=== PATIENT | male | born 1955 | race African-American/Black ===

== ENCOUNTER 2024-01-27 05:02 | Inpatient (IN) | payer MEDICAID, OTHER ==
[~2024-01-27] VITALS: Ht 180.3 cm; Wt 64.9 kg
[2024-01-27 05:51] LABS: BASOPHILS % 0.2 % (0.0-2.0); EOSINOPHILS % 1.1 % (0.0-5.0); HEMATOCRIT. 36.3 % (42.0-52.0); HEMOGLOBIN. 12.1 g/dL (14.0-18.0); LYMPHOCYTES % 8.8 % (20.0-50.0); MEAN CORPUSCULAR HEMOGLOBIN 28.5 pg (28.0-32.0); MEAN CORPUSCULAR HGB CONC 33.5 g/dL (31.0-37.0); MEAN CORPUSCULAR VOLUME 85.1 fL (80.0-94.0); MEAN PLATELET VOLUME 9.3 fl (7.4-10.4); NEUTROPHILS % 78.9 % (40.0-76.0); PLATELET 128 x1000/uL (130-400); RED BLOOD CELL COUNT 4.26 mill/uL (4.7-6.1); RED CELL DISTRIBUTION WIDTH 13.6 % (11.6-14.6); WHITE BLOOD COUNT 7.3 x1000/uL (4.5-11.0)
[2024-01-27 05:54] LABS: CARBON DIOXIDE 29 mEq/L (21-32); CHLORIDE 97 mEq/L (98-107); POTASSIUM 3.7 mEq/L (3.5-5.1); SODIUM 132 mEq/L (136-145)
[2024-01-27 05:55] LABS: CALCIUM 9.6 mg/dL (8.7-10.4)
[2024-01-27 05:59] LABS: CREATININE 0.9 mg/dL (0.6-1.3)
[2024-01-27 06:00] LABS: GLUCOSE 292 mg/dL (70-105); UREA NITROGEN BLOOD 12 mg/dL (9-23)
[2024-01-27 06:01] LABS: ALANINE AMINOTRANSFERASE 44 IU/L (10-49); ALBUMIN 4.3 g/dL (3.2-4.8); ASPARTATE AMINOTRANSFERASE 50 IU/L (<34)
[2024-01-27 06:02] LABS: BILIRUBIN DIRECT 0.1 mg/dL (<=3.0); BILIRUBIN TOTAL 0.5 mg/dL (0.1-1.0); PROTEIN TOTAL 7.5 g/dL (6.0-8.3)
[2024-01-27 06:06] LABS: TROPONIN I HIGH SENSITIVITY < 4 ng/L (3.0-53)
[2024-01-27] MEDS: ACETAMINOPHEN 325MG TABLET PO ONE (06:13)
[2024-01-27 07:54] LABS: TROPONIN I HIGH SENSITIVITY 4 ng/L (3.0-53)
[2024-01-27] MEDS: CLONIDINE 0.1MG TABLET PO PRN (13:25)
[2024-01-27 13:45] VITALS: BP 80/50; PULSE 95; RESP 20; TEMP 37.11408; O2SAT 99
[2024-01-27 14:33] VITALS: BP 80/50; PULSE 95; RESP 20; TEMP 37.1408
[2024-01-27] MEDS ORDERED: DEXTROSE 50% WATER 50ML SYRINGE IV PRN (15:30)
[2024-01-27] MEDS ORDERED: ONDANSETRON HCL 4MG/2ML INJ IV PRN (15:30)
[2024-01-27] MEDS ORDERED: ACETAMINOPHEN 325MG TABLET PO PRN ×2 (15:30)
[2024-01-27] MEDS ORDERED: DOCUSATE SODIUM 100MG CAPSULE PO PRN (15:30)
[2024-01-27] MEDS ORDERED: IPRATROPIUM/ALBUTEROL 0.5-3(2.5)MG/3ML NEB HHN PRN (15:30)
[2024-01-27 16:00] VITALS: BP 162/84; PULSE 65; RESP 20; TEMP 37.61412; O2SAT 98
[2024-01-27 16:52] VITALS: PULSE 67; RESP 18
[2024-01-27] MEDS: IPRATROPIUM/ALBUTEROL 0.5-3(2.5)MG/3ML NEB HHN SCH (16:52)
[2024-01-27] MEDS: PANTOPRAZOLE SODIUM 40 MG/VIAL IV SCH (16:55)
[2024-01-27] MEDS: SODIUM CHLORIDE 0.9% 1,000 ML IV SCH (16:55)
[2024-01-27] MEDS: AZITHROMYCIN 500MG/250ML 250 ML IV SCH ×2 (17:00→21:53)
[2024-01-27] MEDS: INSULIN LISPRO 100 UNITS/ML SUBCUT SCH (17:20)
[2024-01-27] MEDS: BLOOD SUGAR DIAGNOSTIC STRIP TEST SCH (17:20)
[2024-01-27 17:43] LABS: CLARITY URINE CLEAR (CLEAR); COLOR URINE YELLOW (YELLOW); GLUCOSE URINE 3+ (NEGATIVE); KETONES URINE NEGATIVE (NEGATIVE); LEUKOCYTE ESTERASE URINE NEGATIVE (NEGATIVE); NITRITE URINE NEGATIVE (NEGATIVE); OCCULT BLOOD URINE NEGATIVE (NEGATIVE); PH URINE 6.5 (4.5-8.0); PROTEIN URINE TRACE (NEGATIVE); SPECIFIC GRAVITY URINE 1.027 (1.005-1.030)
[2024-01-27] MEDS: DEXAMETHASONE 4MG/ML 1ML VIAL IV SCH (17:53)
[2024-01-27 18:00] LABS: WBC URINE 0-2 /hpf (0-2)
[2024-01-27] MEDS: METRONIDAZOLE 500 MG PREMIX 100 ML IV SCH ×2 (18:00→21:53)
[2024-01-27 18:01] LABS: BACTERIA URINE NONE SEEN; RBC URINE NONE SEEN /hpf (0-2); SQUAMOUS EPITHELIAL CELL URINE RARE /lpf (RARE/1+)
[2024-01-27 18:08] LABS: *AMPHETAMINES SCREEN URINE NEGATIVE (NEGATIVE); *BARBITURATES SCREEN URINE NEGATIVE (NEGATIVE); *BENZODIAZEPINES SCREEN URINE NEGATIVE (NEGATIVE); *COCAINE SCREEN URINE PRESUMPTIVE POSITIVE (NEGATIVE)
[2024-01-27 18:09] LABS: CANNABINOID URINE SCREEN PRESUMPTIVE POSITIVE (NEGATIVE); ECSTASY MDMA SCREEN URINE NEGATIVE (NEGATIVE); METHADONE URINE SCREEN NEGATIVE (NEGATIVE); OPIATES URINE SCREEN NEGATIVE (NEGATIVE); PHENCYCLIDINE URINE SCREEN NEGATIVE (NEGATIVE)
[2024-01-27] MEDS ORDERED: CLONIDINE 0.1MG TABLET PO PRN (18:30)
[2024-01-27] MEDS: HYDROCODONE/ACETAMINOPHEN 5/325MG TABLET PO PRN (18:44)
[2024-01-27 20:00] VITALS: BP 130/71; PULSE 80; RESP 18; TEMP 36.6696; O2SAT 98
[2024-01-27] MEDS: ATORVASTATIN CALCIUM 40MG TABLET PO SCH (20:55)
[2024-01-27] MEDS: HYDRALAZINE HCL 25MG TABLET PO SCH (21:31)
[2024-01-27 23:49] LABS: CREATINE KINASE MB FRACTION < 0.5 ng/mL (0.5-3.6)
[2024-01-27 23:50] LABS: TROPONIN I HIGH SENSITIVITY 4 ng/L (3.0-53)
[2024-01-27 23:51] LABS: CREATINE KINASE 79 IU/L (46-171)
[2024-01-28] VITALS (9 sets, daily range): BP systolic 112–136; BP diastolic 61–81; PULSE 60–88; RESP 9–20; TEMP 36.114–36.78072; O2SAT 96–100
[2024-01-28 06:11] LABS: CHLORIDE 97 mEq/L (98-107); POTASSIUM 4.6 mEq/L (3.5-5.1); SODIUM 129 mEq/L (136-145)
[2024-01-28 06:12] LABS: CALCIUM 9.1 mg/dL (8.7-10.4); CARBON DIOXIDE 27 mEq/L (21-32)
[2024-01-28 06:16] LABS: INR 1.1; PROTHROMBIN TIME 11.9 sec (9.6-11.0)
[2024-01-28 06:17] LABS: GLUCOSE 282 mg/dL (70-105)
[2024-01-28 06:18] LABS: CREATINE KINASE MB FRACTION < 0.5 ng/mL (0.5-3.6); LDL CHOLESTEROL 123 mg/dL (5-100); TRIGLYCERIDE 55 mg/dL (0-150); UREA NITROGEN BLOOD 14 mg/dL (9-23)
[2024-01-28 06:19] LABS: ALANINE AMINOTRANSFERASE 36 IU/L (10-49); ASPARTATE AMINOTRANSFERASE 29 IU/L (<34); BILIRUBIN DIRECT 0.1 mg/dL (<=3.0); CHOLESTEROL 214 mg/dL (<200); HDL CHOLESTEROL 78 mg/dL (>55)
[2024-01-28 06:20] LABS: BILIRUBIN TOTAL 0.4 mg/dL (0.1-1.0); CREATINE KINASE 74 IU/L (46-171); PHOSPHORUS 4.1 mg/dL (2.5-4.9)
[2024-01-28 06:41] LABS: TROPONIN I HIGH SENSITIVITY < 4 ng/L (3.0-53)
[2024-01-28 07:11] LABS: BASOPHILS % 0.4 % (0.0-2.0); HEMOGLOBIN. 12.1 g/dL (14.0-18.0); LYMPHOCYTES % 17.1 % (20.0-50.0); MEAN CORPUSCULAR HGB CONC 32.7 g/dL (31.0-37.0); MEAN CORPUSCULAR VOLUME 85.4 fL (80.0-94.0); MEAN PLATELET VOLUME 9.7 fl (7.4-10.4); MONOCYTES % 9.5 % (2.0-8.0); PLATELET 117 x1000/uL (130-400); RED BLOOD CELL COUNT 4.34 mill/uL (4.7-6.1); RED CELL DISTRIBUTION WIDTH 13.9 % (11.6-14.6); WHITE BLOOD COUNT 7.1 x1000/uL (4.5-11.0)
[2024-01-28] MEDS: TAMSULOSIN HCL 0.4MG SR CAPSULE PO SCH (08:56)
[2024-01-28] MEDS: MAGNESIUM 2 G PREMIX 50 ML IV SCH (12:28)
[2024-01-28] MEDS: INSULIN LISPRO 100 UNITS/ML SUBCUT SCH (18:11)
[2024-01-28] MEDS: INSULIN GLARGINE 100 UNITS/ML SUBCUT SCH (21:34)
[2024-01-29] VITALS (7 sets, daily range): BP systolic 107–135; BP diastolic 57–81; PULSE 70–86; RESP 18–20; TEMP 34.94724–36.6696; O2SAT 95–99
[2024-01-29 06:01] LABS: BASOPHILS % 0.1 % (0.0-2.0); HEMATOCRIT. 33.8 % (42.0-52.0); HEMOGLOBIN. 11.4 g/dL (14.0-18.0); LYMPHOCYTES % 18.7 % (20.0-50.0); MEAN CORPUSCULAR HEMOGLOBIN 28.6 pg (28.0-32.0); MEAN CORPUSCULAR HGB CONC 33.6 g/dL (31.0-37.0); MEAN CORPUSCULAR VOLUME 84.9 fL (80.0-94.0); MEAN PLATELET VOLUME 9.7 fl (7.4-10.4); MONOCYTES % 8.5 % (2.0-8.0); NEUTROPHILS % 72.7 % (40.0-76.0); PLATELET 141 x1000/uL (130-400); RED BLOOD CELL COUNT 3.98 mill/uL (4.7-6.1); RED CELL DISTRIBUTION WIDTH 13.8 % (11.6-14.6); WHITE BLOOD COUNT 9.5 x1000/uL (4.5-11.0)
[2024-01-29 06:27] LABS: FERRITIN 367 ng/mL (22-322)
[2024-01-29 06:28] LABS: FOLIC ACID (FOLATE) SERUM 14.76 ng/mL (>5.38)
[2024-01-29 06:30] LABS: VITAMIN B12 SERUM 754 pg/mL (211-911)
[2024-01-29 06:36] LABS: CARBON DIOXIDE 25 mEq/L (21-32); CHLORIDE 100 mEq/L (98-107); POTASSIUM 4.4 mEq/L (3.5-5.1); SODIUM 133 mEq/L (136-145)
[2024-01-29] MEDS: PANTOPRAZOLE 40MG DR TABLET PO SCH (06:37)
[2024-01-29 06:38] LABS: CALCIUM 9.6 mg/dL (8.7-10.4); HEPATITIS B SURFACE ANTIGEN NEGATIVE (Negative)
[2024-01-29 06:41] LABS: CREATININE 0.9 mg/dL (0.6-1.3)
[2024-01-29 06:42] LABS: GLUCOSE 157 mg/dL (70-105); IRON 113 ug/dL (65-175); UREA NITROGEN BLOOD 23 mg/dL (9-23)
[2024-01-29 06:45] LABS: TOTAL IRON BINDING CAPACITY 276 ug/dl (250-425)
[2024-01-29 06:59] LABS: HEPATITIS A AB IGM NEGATIVE (Negative); HEPATITIS B CORE AB IGM NEGATIVE (Negative)
[2024-01-29 07:00] LABS: HEPATITIS C AB REACTIVE (Pos) (Negative)
[2024-01-29] MEDS: ENOXAPARIN 40MG/0.4ML SYR SUBCUT SCH (10:18)
[2024-01-29] MEDS ORDERED: DEXTROSE 50% WATER 50ML SYRINGE IV PRN (17:45)
[2024-01-29] MEDS: INSULIN LISPRO 100 UNITS/ML SUBCUT SCH (17:58)
[2024-01-29] MEDS: INSULIN LISPRO 100 UNITS/ML SUBCUT NR (17:59)
[2024-01-30] VITALS (12 sets, daily range): BP systolic 116–138; BP diastolic 58–77; PULSE 72–86; RESP 16–20; TEMP 36.3918–36.72516; O2SAT 95–99
[2024-01-30] MEDS ORDERED: NALOXONE HCL 0.4MG/ML VIAL IV PRN (16:15)
[2024-01-30] MEDS: AZITHROMYCIN 500 MG TABLET PO SCH (21:00)
[2024-01-31] VITALS (10 sets, daily range): BP systolic 119–161; BP diastolic 65–84; PULSE 69–81; RESP 16–20; TEMP 35.8362–36.78072; O2SAT 96–100
[2024-02-01] VITALS (7 sets, daily range): BP systolic 123–144; BP diastolic 70–83; PULSE 71–85; RESP 16–20; TEMP 27.78–36.50292; O2SAT 96–100
[2024-02-01] MEDS ORDERED: ALBUTEROL (0.5%) 2.5MG/0.5ML NEB HHN ONE (00:10)
[2024-02-01] MEDS ORDERED: IPRATROPIUM BROMIDE (0.02%) 0.5MG/2.5ML NEB ONE (00:11)
[2024-02-01 07:59] LABS: BASOPHILS % 0.1 % (0.0-2.0); HEMATOCRIT. 36.5 % (42.0-52.0); HEMOGLOBIN. 11.9 g/dL (14.0-18.0); LYMPHOCYTES % 18.5 % (20.0-50.0); MEAN CORPUSCULAR HEMOGLOBIN 27.6 pg (28.0-32.0); MEAN CORPUSCULAR HGB CONC 32.7 g/dL (31.0-37.0); MEAN CORPUSCULAR VOLUME 84.3 fL (80.0-94.0); MEAN PLATELET VOLUME 9.5 fl (7.4-10.4); MONOCYTES % 8.3 % (2.0-8.0); NEUTROPHILS % 73.1 % (40.0-76.0); PLATELET 159 x1000/uL (130-400); RED BLOOD CELL COUNT 4.33 mill/uL (4.7-6.1); WHITE BLOOD COUNT 10.6 x1000/uL (4.5-11.0)
[2024-02-01 08:03] LABS: CHLORIDE 99 mEq/L (98-107); POTASSIUM 4.4 mEq/L (3.5-5.1); SODIUM 130 mEq/L (136-145)
[2024-02-01 08:04] LABS: CALCIUM 9.4 mg/dL (8.7-10.4); CARBON DIOXIDE 25 mEq/L (21-32)
[2024-02-01 08:09] LABS: CREATININE 0.8 mg/dL (0.6-1.3); GLUCOSE 252 mg/dL (70-105); UREA NITROGEN BLOOD 15 mg/dL (9-23)
[2024-02-01 08:11] LABS: ALANINE AMINOTRANSFERASE 61 IU/L (10-49); ASPARTATE AMINOTRANSFERASE 54 IU/L (<34); BILIRUBIN TOTAL 0.4 mg/dL (0.1-1.0); PROTEIN TOTAL 7.2 g/dL (6.0-8.3)
[2024-02-01] MEDS ORDERED: PRED5TAB48 MT (10:46)
[2024-02-01] MEDS ORDERED: INSU100I28 SQ (10:46)
[2024-02-01] MEDS ORDERED: TAMS-11 MT (10:46)
[2024-02-01] MEDS ORDERED: LIP40 MT (10:46)
[2024-02-02] MEDS ORDERED: PREDNISONE 20MG TABLET PO SCH (09:00)
== END 2024-02-01 16:20 | disposition home or self-care (01) | DRG 137 ==
LOC: ER 05:29 → 8WST 06:39 → ER 14:37 → 8WST 01-28 00:08
PROVIDERS: ADMIT Internal Medicine; ATTEND Internal Medicine
DX: U07.1 COVID-19 (principal); A08.39 Other viral enteritis; E87.1 Hypo-osmolality and hyponatremia; B19.20 Unspecified viral hepatitis C without hepatic coma; D64.9 Anemia, unspecified; E11.9 Type 2 diabetes mellitus without complications; E78.00 Pure hypercholesterolemia, unspecified; K29.70 Gastritis, unspecified, without bleeding; F12.20 Cannabis dependence, uncomplicated; I10 Essential (primary) hypertension; F19.10 Other psychoactive substance abuse, uncomplicated; F17.210 Nicotine dependence, cigarettes, uncomplicated; Z78.9 Other specified health status; Z86.73 Personal history of transient ischemic attack (TIA), and cerebral infarction without residual deficits
CPT/HCPCS: 36415; 71045; 74176; 76700; 78227; 80048; 80053; 80061; 80076; 80305; 81003; 82270; 82550; 82553; 82607; 82728; 82746; 82962; 83036; 83540; 83550; 83605; 83735; 83880; 84100; 84145; 84484; 85025; 85379; 86705; 86709; 87015; 87045; 87340; 87426; 87427; 87449; 87493; 89055; 93005; 94640; 99285; A9537; J0456; J1100; J1650; J1815; J2470; J3475; J3490; J7030